=== PATIENT | female | born 1985 | race Caucasian/White ===

== ENCOUNTER 2017-08-04 03:15 | Emergency (ER) | payer OTHER ==
[~2017-08-04] VITALS: Ht 162.6 cm; Wt 73.0 kg
[2017-08-04 03:19] VITALS: BP 132/89
== END 2017-08-04 04:03 | disposition home or self-care (01) ==
LOC: ED 03:51
DX: Z77.21 Contact with and (suspected) exposure to potentially hazardous body fluids (principal)
CPT/HCPCS: 36415; 86706; 86803; 87806; 99284; G0475

== ENCOUNTER 2019-03-03 04:50 | Emergency (ER) | payer OTHER ==
[~2019-03-03] VITALS: Ht 162.6 cm; Wt 63.8 kg
[2019-03-03 04:53] VITALS: BP 135/97
[2019-03-03] MEDS ORDERED: DIPH,PERTUSS(ACELL),TET VAC/PF 0.5 ML IM-VACC ONE ×2 (05:00→05:20)
[2019-03-03] MEDS ORDERED: NEOSPORIN OINT. PKT 1 PACKET ONE ×2 (05:07→05:21)
[2019-03-03 05:25] LABS: BASOPHILS # (AUTO) 0.04 x10^3/uL (0-0.1); BASOPHILS % (AUTO) 1 % (0-1); EOSINOPHILS # (AUTO) 0.04 x10^3/uL (0-0.4); EOSINOPHILS % (AUTO) 1 % (1-7); LYMPHOCYTES # (AUTO) 1.75 x10^3/uL (1-3.4); LYMPHOCYTES % (AUTO) 25 % (22-44); MD NO; MEAN CORPUSCULAR HGB CONC 34.1 g/dL (32.4-35.8); MEAN CORPUSCULAR VOLUME 96.9 fL (80-100); MEAN PLATELET VOLUME 9.3 fL (7.4-10.4); MONOCYTES # (AUTO) 0.37 x10^3/uL (0.2-0.8); MONOCYTES % (AUTO) 5 % (2-9); NEUTROPHILS # (AUTO) 4.85 x10^3/uL (1.8-6.8); NEUTROPHILS % (AUTO) 69 % (42-75); PLATELET COUNT 168 x10^3/uL (130-400); RED BLOOD COUNT 4.52 x10^6/uL (3.82-5.3); RED CELL DISTRIBUTION WIDTH 11.7 % (9.6-15.2)
[2019-03-03 05:33] LABS: ALANINE AMINOTRANSFERASE 21 U/L (12-78); ALBUMIN 4.2 g/dL (3.4-5.0); ANION GAP 6 mmol/L (5-15); CHLORIDE 110 mmol/L (98-107); CREATININE 0.84 mg/dL (0.55-1.02)
[2019-03-03 05:35] LABS: ALKALINE PHOSPHATASE 48 U/L (45-117); BILIRUBIN,TOTAL 0.4 mg/dL (0.2-1.0); TOTAL PROTEIN 7.7 g/dL (6.4-8.2)
--- NOTE | 2019-03-03 06:12 | NUR ---
Patient/Caregiver given discharge instructions and they have confirmed that they understand the instructions. Patient ambulatory with steady gait.
[2019-03-03 06:21] LABS: HCG UR SG 1.029 (1.003-1.030)
== END 2019-03-03 06:13 | disposition home or self-care (01) ==
LOC: ED 05:48
DX: S61.431A Puncture wound without foreign body of right hand, initial encounter (principal); X58.XXXA Exposure to other specified factors, initial encounter; Y93.89 Activity, other specified; Y92.89 Other specified places as the place of occurrence of the external cause; Y99.8 Other external cause status
CPT/HCPCS: 36415; 80053; 81025; 85025; 86705; 86706; 86803; 87340; 87806; 90471; 90715; G0475

== ENCOUNTER 2019-09-08 09:42 | Emergency (ER) | payer OTHER ==
[2019-09-08] MEDS ORDERED: ONDANSETRON ODT 4 MG ONE (10:10)
--- NOTE | 2019-09-08 10:24 | NUR ---
PT PRESENTS TO ED FOR POST BODY FLUID EXPOSURE THIS AM, BLOOD TO FISSURE IN RIGHT 4TH FINGER. [place] HIV/HEPATITIS STATUS OF SOURCE. PT IS A&O, RESPS EVEN AND UNLABORED, NAUSEATED D/T INCIDENT PRIOR TO ARRIVAL, OTHERWISE PT HAS NO OTHER SX. PT MEDICATED WITH ODT ZOFRAN 4MG PER PROTOCOL. BP AND SPO2 MONITORS IN PLACE. CALL LIGHT IN REACH. AWAITING PROVIDERS AND ORDERS.
[2019-09-08] MEDS ORDERED: ONDANSETRON ODT 4 MG PO ONE (10:30)
[2019-09-08] MEDS ORDERED: PLEASE ENTER HEIGHT AND WEIGHT MC SCH (11:00)
[2019-09-08 11:57] VITALS: BP 133/74
== END 2019-09-08 11:59 | disposition home or self-care (01) ==
LOC: ED 10:58
DX: S60.411A Abrasion of left index finger, initial encounter (principal); R11.0 Nausea; Z77.21 Contact with and (suspected) exposure to potentially hazardous body fluids; X58.XXXA Exposure to other specified factors, initial encounter; Y93.89 Activity, other specified; Y92.89 Other specified places as the place of occurrence of the external cause; Y99.8 Other external cause status
CPT/HCPCS: 36415; 86705; 86706; 86803; 87340; 87806; 99283; Q0162; G0475

== ENCOUNTER 2020-04-24 07:41 | Outpatient (CLI) | payer OTHER ==
[2020-04-24] MEDS ORDERED: CHOL10003 PO (08:39)
[2020-04-24] MEDS ORDERED: LORA10TA75 PO (08:39)
[2020-04-24] MEDS ORDERED: ATOR20TA37 PO (08:39)
[2020-04-24 09:20] LABS: ANION GAP 7 mmol/L (5-15); CALCIUM 9.2 mg/dL (8.5-10.1); CHLORIDE 107 mmol/L (98-107)
[2020-04-24 09:21] LABS: BASOPHILS % (AUTO) 0 % (0-1); EOSINOPHILS % (AUTO) 0 % (1-7); LYMPHOCYTES % (AUTO) 15 % (22-44); MEAN CORPUSCULAR HEMOGLOBIN 33.4 pg (27.0-34.8); MEAN CORPUSCULAR HGB CONC 34.5 g/dL (32.4-35.8); MEAN PLATELET VOLUME 9.5 fL (7.4-10.4); MONOCYTES % (AUTO) 5 % (2-9); NEUTROPHILS % (AUTO) 80 % (42-75); PLATELET COUNT 170 x10^3/uL (130-400); RED BLOOD COUNT 4.57 x10^6/uL (3.82-5.3); RED CELL DISTRIBUTION WIDTH 12.3 % (9.6-15.2)
[2020-04-24 09:26] LABS: CREATININE 0.83 mg/dL (0.55-1.02)
[2020-04-24 09:27] LABS: MICROSCOPIC AUTO
[2020-04-24 09:29] LABS: MD NO
== END 2020-04-24 23:59 | disposition home or self-care (01) ==
LOC: STAR 07:41
PROVIDERS: ATTEND Obstetrics & Gynecology
DX: Z01.812 Encounter for preprocedural laboratory examination (principal); N92.0 Excessive and frequent menstruation with regular cycle; N80.0 Endometriosis of uterus; Z20.822 Contact with and (suspected) exposure to COVID-19
CPT/HCPCS: 36415; 80048; 81001; 84702; 85025; 87086; U0003

== ENCOUNTER 2020-04-30 05:23 | Day surgery (SDC) | payer OTHER ==
[~2020-04-30] VITALS: Ht 162.6 cm; Wt 84.3 kg
[~2020-04-30 05:23] MED LIST: ATOR20TA37 PO; CHOL10003 PO; LORA10TA75 PO
[2020-04-30 06:25] VITALS: BP 125/89
[2020-04-30] MEDS ORDERED: LACTATED RINGERS 1,000 ML IV SCH (06:30)
[2020-04-30] MEDS ORDERED: GABAPENTIN 300 MG CAPSULE PO ONE (06:30)
[2020-04-30] MEDS ORDERED: ACETAMINOPHEN 500 MG TABLET PO ONE (06:30)
[2020-04-30] MEDS ORDERED: CHLORHEXIDINE 15 ML UDC PO ONE (06:30)
[2020-04-30 06:32] LABS: HCG UR SG 1.023 (1.003-1.030)
[2020-04-30] MEDS ORDERED: BUPIVACAINE/PF 0.25% ONE (06:55)
[2020-04-30] MEDS ORDERED: FLUORESCEIN SODIUM 500 MG/5 ML ONE (06:55)
[2020-04-30] MEDS ORDERED: EPINEPHRINE 1 MG/ML, 1ML ONE (06:55)
[2020-04-30] MEDS ORDERED: SCOPOLAMINE 1MG PATCH TD ONE (07:19)
[2020-04-30] MEDS ORDERED: FENTANYL PF 250 MCG/5ML ONE (07:22)
[2020-04-30] MEDS ORDERED: MIDAZOLAM 1 MG/ML, 2ML ONE (07:22)
[2020-04-30] MEDS ORDERED: PROPOFOL 50 ML ONE ×2 (07:24→08:13)
[2020-04-30] MEDS ORDERED: DEXMEDETOMIDINE 200 MCG/2 ML ONE (07:28)
[2020-04-30] MEDS ORDERED: hydrALAzine 20 MG/ML, 1ML IV PRN (07:30)
[2020-04-30] MEDS ORDERED: FENTANYL PF 100 MCG/2ML IV PRN (07:30)
[2020-04-30] MEDS ORDERED: LABETALOL 5MG/ML, 20ML IV PRN (07:30)
[2020-04-30] MEDS ORDERED: OXYcodone 5 MG/5 ML ORAL.SOL UDC PO PRN (07:30)
[2020-04-30] MEDS ORDERED: PROMETHAZINE 25 MG/ML, 1ML IVPush PRN (07:30)
[2020-04-30] MEDS ORDERED: HYDROmorphone 1 MG/ML, 1ML INJ IVPush PRN (07:30)
[2020-04-30] MEDS ORDERED: MEPERIDINE/PF 25MG/0.5ML IVPush PRN (07:30)
[2020-04-30] MEDS ORDERED: HALOPERIDOL 5 MG/ML IV PRN (07:30)
[2020-04-30] MEDS ORDERED: DIPHENHYDRAMINE 50 MG/ML, 1ML IVPush PRN (07:30)
[2020-04-30] MEDS ORDERED: ROCURONIUM 10MG/ML,5ML ONE (09:04)
[2020-04-30] MEDS ORDERED: GLYCOPYRROLATE 0.2MG/1ML, 5ML ONE (09:04)
[2020-04-30] MEDS ORDERED: ONDANSETRON 2MG/ML, 2ML ONE (09:04)
[2020-04-30] MEDS ORDERED: NEOSTIGMINE 1 MG/ML, 10ML ONE (09:04)
[2020-04-30] MEDS ORDERED: SUCCINYLCHOLINE 20 MG/ML, 10ML ONE (09:04)
[2020-04-30] MEDS ORDERED: DEXAMETHASONE 4 MG/ML, 1ML ONE (09:04)
[2020-04-30] MEDS ORDERED: PROPOFOL 10 MG/ML, 20ML ONE (09:04)
[2020-04-30] MEDS ORDERED: CEFAZOLIN 1,000 MG ONE (09:04)
[2020-04-30] MEDS ORDERED: FENTANYL PF 100 MCG/2ML ONE (09:52)
[2020-04-30] MEDS ORDERED: OXYcodone 5 MG/5 ML ORAL.SOL UDC ONE (09:52)
[2020-04-30 10:11] LABS: BASOPHILS % (AUTO) 0 % (0-1); EOSINOPHILS % (AUTO) 0 % (1-7); LYMPHOCYTES % (AUTO) 9 % (22-44); MEAN CORPUSCULAR HEMOGLOBIN 33.2 pg (27.0-34.8); MEAN CORPUSCULAR HGB CONC 33.7 g/dL (32.4-35.8); MEAN PLATELET VOLUME 9.3 fL (7.4-10.4); MONOCYTES % (AUTO) 2 % (2-9); NEUTROPHILS % (AUTO) 88 % (42-75); PLATELET COUNT 141 x10^3/uL (130-400); RED BLOOD COUNT 4.12 x10^6/uL (3.82-5.3); RED CELL DISTRIBUTION WIDTH 11.9 % (9.6-15.2)
[2020-04-30 10:12] LABS: MD NO
== END 2020-04-30 15:15 | disposition home or self-care (01) ==
LOC: OUT 05:23
PROVIDERS: ATTEND Obstetrics & Gynecology
DX: N80.0 Endometriosis of uterus (principal); N92.0 Excessive and frequent menstruation with regular cycle; N80.3 Endometriosis of pelvic peritoneum; D25.9 Leiomyoma of uterus, unspecified; N83.8 Other noninflammatory disorders of ovary, fallopian tube and broad ligament; E78.5 Hyperlipidemia, unspecified; Z79.899 Other long term (current) drug therapy; Z88.8 Allergy status to other drugs, medicaments and biological substances; Z98.890 Other specified postprocedural states
CPT/HCPCS: 36415; 58552; 81025; 85025; 88307; J0171; J0690; J1100; J2250; J2405; J2704; J2710; J3010; J7120; J0330